=== PATIENT | female | born 1975 | race Two or more races ===

== ENCOUNTER 2017-03-13 15:31 | Emergency (ER) | payer MEDICAID ==
[~2017-03-13] VITALS: Ht 157.5 cm; Wt 57.6 kg
[2017-03-13] MEDS ORDERED: Norco 7.5mg/325mg tab ORAL ONE (16:15)
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
--- NOTE | 2017-03-13 16:48 | Diagnostic Imaging Report ---
Indication: PAIN Technique: 3 views of the right elbow Comparison: none Findings: No acute fractures. No dislocations. No joint effusion. Joint spaces are preserved. Normal mineralization. No radiopaque foreign body. Impression: Negative
--- NOTE | 2017-03-13 16:49 | Diagnostic Imaging Report ---
Indication: PAIN Technique: Multiple views of the sternum Comparison: None Findings: The sternum is not optimally visualized. No definite evidence of sternal fracture or retrosternal hematoma. Impression: No definite acute bony trauma
[2017-03-13] MEDS ORDERED: TYLENOL EXTRA500 MG ORAL (17:02)
[2017-03-13] MEDS ORDERED: ROBAXIN-750750 MG PO (17:02)
[2017-03-13] MEDS ORDERED: Bacitracin Oint UD TOPIC ONE (17:15)
[2017-03-13 17:33] VITALS: BP 122/72
[2017-03-13 17:35] VITALS: BP 122/72
[2017-03-13] MEDS ORDERED: NKM (17:35)
== END 2017-03-13 17:39 | disposition home or self-care (01) ==
LOC: EDBD 15:31 → EMR 16:09
DX: S50.01XA Contusion of right elbow, initial encounter (principal); S20.219A Contusion of unspecified front wall of thorax, initial encounter; V43.62XA Car passenger injured in collision with other type car in traffic accident, initial encounter; Y92.410 Unspecified street and highway as the place of occurrence of the external cause
CPT/HCPCS: 71120; 99284